=== PATIENT | male | born 1975 | race Caucasian/White ===

== ENCOUNTER → 2016-08-28 | Outpatient (CLI) | payer BC ==
[~2016-08-28] MED LIST: ADVIL200 MG PO; ASPIRIN325 MG PO; HYDROCODON-ACE1 EAC7 PO; PERCOCET 5/31 TABLET PO
== END | disposition home or self-care (01) ==
LOC: CDC 11:48
DX: R94.31 Abnormal electrocardiogram [ECG] [EKG] (principal); S82.61XA Displaced fracture of lateral malleolus of right fibula, initial encounter for closed fracture; S82.301A Unspecified fracture of lower end of right tibia, initial encounter for closed fracture
CPT/HCPCS: 93000

== ENCOUNTER 2016-08-29 11:08 | Day surgery (SDC) | payer BC ==
[~2016-08-29] VITALS: Ht 172.7 cm; Wt 112.0 kg
[~2016-08-29 11:08] MED LIST changes: -ASPIRIN325 MG PO; -PERCOCET 5/31 TABLET PO
[2016-08-29 11:46] VITALS: BP 126/65
[2016-08-29 11:57] LABS: HEMATOCRIT 48.5 % (38.0-50.0); MCH 28.8 PG (29.0-34.0); MCV 87.4 FL (86-99); MEAN PLAT.VOLUME 11.4 uM^3 (9.0-12.4); PLATELET COUNT 235 K/uL (156-360); RBC DIS.WIDTH-CV 11.9 % (11.8-14.6); RBC DIS.WIDTH-SD 38.5 % (39-53); RED BLOOD COUNT 5.55 M/uL (4.00-5.50); WHITE BLOOD COUNT 8.2 K/uL (4.1-10.2)
[2016-08-29] MEDS ORDERED: ASPIRIN325 MG PO (14:28)
[2016-08-29] MEDS ORDERED: PERCOCET 5/31 TABLET PO (14:28)
[2016-08-29 16:16] VITALS: BP 141/94
== END 2016-08-29 17:30 | disposition home or self-care (01) ==
LOC: SDC 11:08
PROVIDERS: Orthopaedic Surgery Sports Medicine
DX: S82.841A Displaced bimalleolar fracture of right lower leg, initial encounter for closed fracture (principal); X50.1XXA Overexertion from prolonged static or awkward postures, initial encounter; Y93.69 Activity, other involving other sports and athletics played as a team or group; Y92.328 Other athletic field as the place of occurrence of the external cause; Z88.2 Allergy status to sulfonamides; Z82.49 Family history of ischemic heart disease and other diseases of the circulatory system
CPT/HCPCS: 73610; 76000; 85027; C1713; J0690; J1100; J1170; J2250; J2405; J3010; S0020

== ENCOUNTER 2016-10-10 06:35 | Inpatient (IN) | payer BC ==
[~2016-10-10] VITALS: Ht 172.7 cm; Wt 116.7 kg
[~2016-10-10 06:35] MED LIST changes: +ASPIRIN325 MG PO; +PERCOCET 5/31 TABLET PO
[2016-10-10 07:36] LABS: HEMATOCRIT 50.5 % (38.0-50.0); MCH 28.7 PG (29.0-34.0); MCHC 32.7 G/DL (30.0-36.0); MEAN PLAT.VOLUME 10.9 uM^3 (9.0-12.4); PLATELET COUNT 248 K/uL (156-360); RBC DIS.WIDTH-CV 12.1 % (11.8-14.6); RBC DIS.WIDTH-SD 39.1 % (39-53); RED BLOOD COUNT 5.74 M/uL (4.00-5.50); WHITE BLOOD COUNT 16.3 K/uL (4.1-10.2)
[2016-10-10 07:52] LABS: D-DIMER ELISA > 4.00 mg/L FEU (< 0.57)
[2016-10-10 08:16] LABS: ALKALINE PHOSPHATASE 57 IU/L (3-129); ANION GAP 10 MEQ/L (2-14); CHLORIDE 99 MEQ/L (99-109); GFR ESTIMATE (CALCULATED) > 59 mL/min/; GLUCOSE 141 mg/dL (70-99); POTASSIUM 4.3 MEQ/L (3.7-5.4); SAMPLE HEMOLYSIS CHECK 0; SAMPLE ICTERIC CHECK 0; SAMPLE LIPEMIA CHECK 0; SODIUM 137 MEQ/L (136-147); TOTAL BILIRUBIN 1.2 MG/DL (0.0-1.0); UREA NITROGEN (BUN) 11 mg/dL (9-23)
[2016-10-10 10:54] LABS: PROTHROMBIN TIME 10.2 (9.2-11.2); PTT 26.4 (25-32)
[2016-10-10 11:54] LABS: TROP-I INTERPRETATION NEGATIVE; TROPONIN-I < 0.01 ng/mL (0.0-0.30)
[2016-10-10] MEDS ORDERED: LITE COAT ASPI325 M1 PO (12:05)
[2016-10-10 16:34] LABS: ADD MIUA? NO; BILIRUBIN NEGATIVE; BLOOD NEGATIVE; COLOR YELLOW ((YELLOW)); GLUCOSE (STRIP) NEGATIVE; KETONES NEGATIVE; LEUKOCYTES NEGATIVE; NITRITE NEGATIVE; PROTEIN (STRIP) NEGATIVE; SPECIFIC GRAVITY 1.042 (1.000-1.030); UCUL ADDED? NO; UROBILINOGEN 0.2 MG/DL (0.2-1.0)
[2016-10-10 17:39] LABS: TROP-I INTERPRETATION NEGATIVE; TROPONIN-I < 0.01 ng/mL (0.0-0.30)
[2016-10-10 18:00] VITALS: BP 146/90
[2016-10-10 20:00] VITALS: BP 134/87
[2016-10-10 23:47] LABS: TROP-I INTERPRETATION NEGATIVE; TROPONIN-I < 0.01 ng/mL (0.0-0.30)
[2016-10-10 23:55] VITALS: BP 140/85
[2016-10-11 04:00] VITALS: BP 128/81
[2016-10-11 07:04] LABS: HEMATOCRIT 42.2 % (38.0-50.0); MCH 29.2 PG (29.0-34.0); MCHC 32.7 G/DL (30.0-36.0); MCV 89.4 FL (86-99); MEAN PLAT.VOLUME 11.4 uM^3 (9.0-12.4); PLATELET COUNT 189 K/uL (156-360); RBC DIS.WIDTH-CV 12.1 % (11.8-14.6); RBC DIS.WIDTH-SD 39.9 % (39-53); RED BLOOD COUNT 4.72 M/uL (4.00-5.50); WHITE BLOOD COUNT 13.4 K/uL (4.1-10.2)
[2016-10-11 07:07] VITALS: BP 139/83
[2016-10-11 07:21] LABS: ALKALINE PHOSPHATASE 47 IU/L (3-129); ANION GAP 7 MEQ/L (2-14); CHLORIDE 101 MEQ/L (99-109); GFR ESTIMATE (CALCULATED) > 59 mL/min/; POTASSIUM 4.4 MEQ/L (3.7-5.4); SAMPLE HEMOLYSIS CHECK 0; SAMPLE ICTERIC CHECK 0; SAMPLE LIPEMIA CHECK 0; SODIUM 137 MEQ/L (136-147); TOTAL BILIRUBIN 1.2 MG/DL (0.0-1.0); UREA NITROGEN (BUN) 9 mg/dL (9-23)
[2016-10-11 07:30] LABS: GLUCOSE 93 mg/dL (70-99)
[2016-10-11] MEDS ORDERED: XARELTO20 MG PO (11:48)
[2016-10-11] MEDS ORDERED: XARELTO15 MG PO (11:48)
[2016-10-11 12:00] VITALS: BP 130/79
[2016-10-11 16:20] VITALS: BP 129/75
[2016-10-11 20:15] VITALS: BP 131/76
[2016-10-11 23:05] VITALS: BP 113/70
[2016-10-12 04:20] VITALS: BP 113/70
[2016-10-12 06:22] LABS: HEMATOCRIT 40.2 % (38.0-50.0); MCH 28.8 PG (29.0-34.0); MCHC 32.8 G/DL (30.0-36.0); MCV 87.6 FL (86-99); MEAN PLAT.VOLUME 11.2 uM^3 (9.0-12.4); PLATELET COUNT 216 K/uL (156-360); RBC DIS.WIDTH-CV 11.9 % (11.8-14.6); RBC DIS.WIDTH-SD 38.4 % (39-53); RED BLOOD COUNT 4.59 M/uL (4.00-5.50); WHITE BLOOD COUNT 10.6 K/uL (4.1-10.2)
[2016-10-12 06:51] LABS: ANION GAP 11 MEQ/L (2-14); CHLORIDE 100 MEQ/L (99-109); GFR ESTIMATE (CALCULATED) > 59 mL/min/; GLUCOSE 87 mg/dL (70-99); POTASSIUM 3.6 MEQ/L (3.7-5.4); SAMPLE HEMOLYSIS CHECK 0; SAMPLE ICTERIC CHECK 0; SAMPLE LIPEMIA CHECK 0; SODIUM 138 MEQ/L (136-147); UREA NITROGEN (BUN) 10 mg/dL (9-23)
[2016-10-12 07:09] VITALS: BP 128/81
[2016-10-12 11:22] VITALS: BP 132/72
[2016-10-15 18:32] LABS: APCR to FVL REFLEX Has been added (()); DRVVT Mixing Study Interp Not Indicated (()); PROTEIN C FUNCTIONAL ACTIVITY+ 119 % (70-180); PTT-LA 38 sec (<=40); Protein S, Free 119 % normal (57-171); Thrombosis Consult Level Limited (()); dRVVT Screen 38 sec (<=45)
[2016-10-16 08:00] LABS: ANTITHROMBIN III ACTIVITY+ 104 % activi (80-120)
== END 2016-10-12 12:58 | disposition home or self-care (01) | DRG 176 ==
LOC: EME 06:35 → 4EAST 10:39 → EDOF 10:39 → 4EAST 17:25
PROVIDERS: Internal Medicine; Internal Medicine Pulmonary Disease; Nurse Practitioner Family
PROC: 2W5 Placement, Anatomical Regions, Removal (ICD-10-PCS; principal; 2016-10-10)
DX: I26.99 Other pulmonary embolism without acute cor pulmonale (principal); I82.431 Acute embolism and thrombosis of right popliteal vein; I82.411 Acute embolism and thrombosis of right femoral vein; S82.831D Other fracture of upper and lower end of right fibula, subsequent encounter for closed fracture with routine healing; Z88.2 Allergy status to sulfonamides; Z83.2 Family history of diseases of the blood and blood-forming organs and certain disorders involving the immune mechanism; Z82.49 Family history of ischemic heart disease and other diseases of the circulatory system; Z83.3 Family history of diabetes mellitus
CPT/HCPCS: 71020; 71275; 73610; 74020; 80048; 80053; 81003; 81240 90; 81241 90; 83090 90; 83880; 84484; 85027; 85240 90; 85300 90; 85303 90; 85305 90; 85306 90; 85307 90; 85379; 85610; 85613 90; 85730; 85730 90; 86146 90; 86147 90; 93005; 93306; 93970; 94640; 94760; 94799; 99202; 99281; 99285; J2270; J2405; J3010; J7030; S0028